=== PATIENT | female | born 1940 | race Caucasian/White ===

== ENCOUNTER → 2017-01-06 | Outpatient (CLI) | payer MEDICARE, BC ==
[~2017-01-06] MED LIST: LOSA25 PO; PANT20 PO; PRAV10TA PO
[2017-01-06 13:27] LABS: AUTOMATED NEUTROPHIL # 2.1 TH/MM3 (1.8-7.7); BASOPHIL # 0.1 TH/MM3 (0-0.2); BASOPHIL % 1.3 % (0.0-2.0); EOSINOPHIL # 0.3 TH/MM3 (0-0.4); EOSINOPHIL % 5.5 % (0.0-4.0); HEMATOCRIT 39.8 % (35.0-46.0); HEMO FLAGS DIFF FINAL; LYMPH % 38.9 % (9.0-44.0); LYMPHOCYTE # 1.8 TH/MM3 (1.0-4.8); MEAN CELL VOLUME 90.6 FL (80.0-100.0); MEAN CORPUSCULAR HEMOGLOBIN 30.8 PG (27.0-34.0); MONO % 8.5 % (0.0-8.0); NEUT % 45.8 % (16.0-70.0); PLATELET COUNT 294 TH/MM3 (150-450); RED BLOOD COUNT 4.39 MIL/MM3 (4.00-5.30); RED CELL DISTRIBUTION WIDTH 13.1 % (11.6-17.2); WHITE BLOOD COUNT 4.6 TH/MM3 (4.0-11.0)
[2017-01-06 13:50] LABS: ANION GAP 3 MEQ/L (5-15); BICARBONATE 33.1 MEQ/L (21.0-32.0); BLOOD UREA NITROGEN 15 MG/DL (7-18); CHLORIDE 105 MEQ/L (98-107); POTASSIUM 4.9 MEQ/L (3.5-5.1); SODIUM (NA) 141 MEQ/L (136-145)
[2017-01-06 14:02] LABS: ALKALINE PHOSPHATASE 109 U/L (45-117); ALT (GPT) 75 U/L (10-53); AST (GOT) 57 U/L (15-37); GLOMERULAR FILTRATION RATE 65 ML/MIN (>89); GLUCOSE,FASTING 87 MG/DL (74-99); HDL CHOLESTEROL 62.4 MG/DL (40.0-60.0); LDL CHOLESTEROL 77 MG/DL (0-99); TOTAL BILIRUBIN ADULT 0.5 MG/DL (0.2-1.0)
== END ==
LOC: PLAB 09:04
PROVIDERS: ATTEND Family Medicine
DX: I10 Essential (primary) hypertension (principal); E78.5 Hyperlipidemia, unspecified; K21.9 Gastro-esophageal reflux disease without esophagitis
CPT/HCPCS: 36415; 80053; 80061; 85025

== ENCOUNTER → 2017-06-19 | Outpatient (CLI) | payer MEDICARE, BC ==
[2017-06-19 13:11] LABS: AUTOMATED NEUTROPHIL # 1.7 TH/MM3 (1.8-7.7); BASOPHIL # 0.1 TH/MM3 (0-0.2); BASOPHIL % 1.3 % (0.0-2.0); EOSINOPHIL # 0.2 TH/MM3 (0-0.4); EOSINOPHIL % 4.1 % (0.0-4.0); HEMATOCRIT 40.1 % (35.0-46.0); HEMO FLAGS DIFF FINAL; LYMPH % 43.2 % (9.0-44.0); LYMPHOCYTE # 1.8 TH/MM3 (1.0-4.8); MEAN CELL VOLUME 93.9 FL (80.0-100.0); MEAN CORPUSCULAR HEMOGLOBIN 32.5 PG (27.0-34.0); MEAN CORPUSCULAR HGB CONC 34.6 % (32.0-36.0); MONO % 9.6 % (0.0-8.0); NEUT % 41.8 % (16.0-70.0); PLATELET COUNT 351 TH/MM3 (150-450); RED BLOOD COUNT 4.27 MIL/MM3 (4.00-5.30); RED CELL DISTRIBUTION WIDTH 12.5 % (11.6-17.2); WHITE BLOOD COUNT 4.2 TH/MM3 (4.0-11.0)
[2017-06-19 13:37] LABS: ANION GAP 6 MEQ/L (5-15); AST (GOT) 30 U/L (15-37); BICARBONATE 29.5 MEQ/L (21.0-32.0); BLOOD UREA NITROGEN 16 MG/DL (7-18); CHLORIDE 97 MEQ/L (98-107); GLOMERULAR FILTRATION RATE 60 ML/MIN (>89); GLUCOSE,FASTING 74 MG/DL (74-99); POTASSIUM 3.5 MEQ/L (3.5-5.1); SODIUM (NA) 132 MEQ/L (136-145)
[2017-06-19 13:50] LABS: ALKALINE PHOSPHATASE 116 U/L (45-117); ALT (GPT) 71 U/L (10-53); HDL CHOLESTEROL 74.8 MG/DL (40.0-60.0); LDL CHOLESTEROL 118 MG/DL (0-99); TOTAL BILIRUBIN ADULT 0.5 MG/DL (0.2-1.0)
== END ==
LOC: PLAB 09:03
PROVIDERS: ATTEND Family Medicine
DX: I10 Essential (primary) hypertension (principal); E78.5 Hyperlipidemia, unspecified; R74.0 Nonspecific elevation of levels of transaminase and lactic acid dehydrogenase [LDH]; K21.9 Gastro-esophageal reflux disease without esophagitis
CPT/HCPCS: 36415; 80053; 80061; 80074; 85025

== ENCOUNTER 2017-11-07 21:43 | Observation (INO) | payer MEDICARE, BC ==
[~2017-11-07] VITALS: Ht 157.5 cm; Wt 57.0 kg
[2017-11-07 21:44] VITALS: BP 210/91; PULSE 75; RESP 16; TEMP 98; O2SAT 99
[2017-11-07] MEDS ORDERED: LUTE20CA PO (22:13)
[2017-11-07] MEDS ORDERED: CALC1TAB87 PO (22:13)
[2017-11-07] MEDS ORDERED: BIOTCAP PO (22:13)
[2017-11-07] MEDS ORDERED: CLAR10CA3 PO (22:13)
[2017-11-07] MEDS ORDERED: ESCI10TA PO (22:13)
[2017-11-07] MEDS ORDERED: MULT-65 PO (22:13)
[2017-11-07] MEDS ORDERED: LOSA50TA PO (22:13)
[2017-11-07] MEDS ORDERED: CARA1TAB6 PO (22:13)
--- NOTE | 2017-11-07 22:16 | PD ---
HPI Chief Complaint: Hypertension Time Seen by Provider: 22:15 Travel History International Travel<30 days: No Contact w/Intl Traveler<30days: No Traveled to known affect area: No History of Present Illness HPI 76-year-old female came to the emergency room with history of substernal chest pain radiating to her back that started tonight. She has been retching as well and trying to vomit. Patient has history of GERD and says she has had these symptoms in the past. However she recently has been running high blood pressure as well. She has been keeping a log of her blood pressure and today it was running in 180s to 200s. Her daughter decided to bring her to the emergency room because of this. Patient has never had a cardiac workup or stress test in the past. Her primary care recently increased her dose of losartan from 25 mg once a day to 50 mg once a day. She is been taking it for past 4 days but her blood pressure continues to be high. In triage her systolic blood pressure was little over 200. When I went to see her it was 180. She seems anxious and uncomfortable. [facility] Past Medical History Narrative Medical List of her past medical, surgical, social and family history is reviewed from the nursing note. Depression: Yes High Cholesterol: Yes Diminished Hearing: No GERD: Yes Hypertension: Yes Tetanus Vaccination: Unknown Influenza Vaccination: Yes ?: Not Menopausal: Yes Past Surgical History Hysterectomy: Yes Social History Alcohol Use: No Tobacco Use: No Substance Use: No Allergies-Medications (Allergen,Severity, Reaction): Coded Allergies: niacin (Verified Allergy, Intermediate, hives, 11/07/17) aspirin (Verified Adverse Reaction, Intermediate, Heartburn, 11/07/17) Comments List of her allergies reviewed from the nursing note. Reported Meds & Prescriptions Reported Meds & Active Scripts Active Norvasc (Amlodipine Besylate) 5 Mg Tab 5 Mg PO DAILY Reported Claritin (Loratadine) 10 Mg Cap 10 Mg PO DAILY Losartan (Losartan Potassium) 50 Mg Tab 50 Mg PO DAILY Escitalopram (Escitalopram Oxalate) 10 Mg Tab 10 Mg PO DAILY Carafate (Sucralfate) 1 Gram Tab 1 Gm PO TID On empty stomach Lutein 20 Mg Cap 20 Mg PO DAILY Biotin 5 Mg Cap 5 Mg PO Multi-Vitamin Daily (Multiple Vitamin) 1 Tab Tab 1 Tab PO DAILY Calcium 600 with Vitamin D (Calcium Carbonate-Cholecalciferol) 600-400 mg-Unit Tab 1 Tab PO DAILY Narrative Medication List of her home medications reviewed from the nursing note. Review of Systems Except as stated in HPI: all other systems reviewed are Neg Cardiovascular: Positive: Chest Pain or Discomfort Gastrointestinal: Positive: Nausea Physical Exam Narrative GENERAL: Awake, alert, anxious, elderly, moderate distress SKIN: Focused skin assessment warm/dry. HEAD: Atraumatic. Normocephalic. EYES: Pupils equal and round. No scleral icterus. No injection or drainage. ENT: No nasal bleeding or discharge. Mucous membranes pink and moist. NECK: Trachea midline. No JVD. CARDIOVASCULAR: Regular rate and rhythm. No murmur appreciated. RESPIRATORY: No accessory muscle use. Clear to auscultation. Breath sounds equal bilaterally. GASTROINTESTINAL: Abdomen soft, non-tender, nondistended. Hepatic and splenic margins not palpable. MUSCULOSKELETAL: No obvious deformities. No clubbing. No cyanosis. No edema. NEUROLOGICAL: Awake and alert. No obvious cranial nerve deficits. Motor grossly within normal limits. Normal speech. PSYCHIATRIC: Appropriate mood and affect; insight and judgment normal. Data Data Last Documented VS Vital Signs Date Time Temp Pulse Resp B/P (MAP) Pulse Ox O2 Delivery O2 Flow Rate FiO2 11/08/17 00:55 64 18 157/69 (98) 97 Room Air 11/07/17 21:44 98.0 Orders Orders Electrocardiogram (11/07/17 22:35) Basic Metabolic Panel (Bmp) (11/07/17 22:35) Ckmb (Isoenzyme) Profile (11/07/17 22:35) Complete Blood Count With Diff (11/07/17 22:35) Magnesium (Mg) (11/07/17 22:35) Prothrombin Time / Inr (Pt) (11/07/17 22:35) Act Partial Throm Time (Ptt) (11/07/17 22:35) Troponin I (11/07/17 22:35) Chest, Single Ap (11/07/17 22:35) Ecg Monitoring (11/07/17 22:35) Bilateral Bp Monitoring (11/07/17 22:35) Iv Access Insert/Monitor (11/07/17 22:35) Oximetry (11/07/17 22:35) Oxygen Administration (11/07/17 22:35) Aspirin Chew (Aspirin Chew) (11/07/17 22:45) Sodium Chloride 0.9% Flush (Ns Flush) (11/07/17 22:45) Nitroglycerin Sl (Nitrostat Sl) (11/07/17 22:45) D-Dimer (11/07/17 22:35) Ct Pulmonary Angiogram (11/07/17 23:44) Admit Order (Ed Use Only) (11/08/17 01:32) Labs Laboratory Tests Test 11/07/17 22:50 White Blood Count 10.7 TH/MM3 Red Blood Count 4.58 MIL/MM3 Hemoglobin 13.9 GM/DL Hematocrit 41.8 % Mean Corpuscular Volume 91.2 FL Mean Corpuscular Hemoglobin 30.3 PG Mean Corpuscular Hemoglobin Concent 33.2 % Red Cell Distribution Width 12.0 % Platelet Count 512 TH/MM3 Mean Platelet Volume 7.9 FL Neutrophils (%) (Auto) 70.2 % Lymphocytes (%) (Auto) 19.6 % Monocytes (%) (Auto) 8.2 % Eosinophils (%) (Auto) 1.5 % Basophils (%) (Auto) 0.5 % Neutrophils # (Auto) 7.4 TH/MM3 Lymphocytes # (Auto) 2.1 TH/MM3 Monocytes # (Auto) 0.9 TH/MM3 Eosinophils # (Auto) 0.2 TH/MM3 Basophils # (Auto) 0.1 TH/MM3 CBC Comment DIFF FINAL Differential Comment Prothrombin Time 10.4 SEC Prothromb Time International Ratio 1.0 RATIO Activated Partial Thromboplast Time 27.4 SEC D-Dimer Quantitative (PE/DVT) 0.89 MG/L FEU Blood Urea Nitrogen 17 MG/DL Creatinine 0.74 MG/DL Random Glucose 105 MG/DL Calcium Level 9.7 MG/DL Magnesium Level 2.3 MG/DL Sodium Level 135 MEQ/L Potassium Level 3.7 MEQ/L Chloride Level 98 MEQ/L Carbon Dioxide Level 32.3 MEQ/L Anion Gap 5 MEQ/L Estimat Glomerular Filtration Rate 77 ML/MIN Total Creatine Kinase 84 U/L Troponin I LESS THAN 0.02 NG/ML MDM Medical Decision Making Medical Screen Exam Complete: Yes Emergency Medical Condition: Yes Medical Record Reviewed: Yes Differential Diagnosis ACS, non-STEMI, hypertensive crisis Narrative Course 10:40 PM awaiting for the blood test results. Patient has been given 2 baby aspirin's on a nitroglycerin sublingual. She will be signed over to the oncoming ER physician. Procedures EKG Prior to Arrival: No Scripts Amlodipine (Norvasc) 5 Mg Tab 5 MG PO DAILY for Blood Pressure Management, #30 TAB Prov: Marshall Wen 11/08/17 Teresa Fulton MD Nov 07, 2017 22:15
[2017-11-07 22:20] VITALS: BP 180/81; PULSE 66; RESP 18; O2SAT 97
[2017-11-07 22:21] VITALS: BP 180/90
[2017-11-07] MEDS ORDERED: NITROGLYCERIN 0.4 MG SL 25 TABS/BTL SL ONE (22:45)
[2017-11-07] MEDS ORDERED: SODIUM CHLORIDE 0.9% FLUSH 10 ML FLUSH IVF PRN (22:45)
[2017-11-07] MEDS ORDERED: ASPIRIN 81 MG CHEW TAB PO ONE (22:45)
--- NOTE | 2017-11-07 22:51 | RADRPT ---
EXAM DATE/TIME: 11/07/2017 22:37 [facility] COMPARISON: No previous studies available for comparison. INDICATIONS : High blood pressure, Coughing, Shortness of breath and chest pain. MEDICAL HISTORY : Hypercholesterolemia. Hypertension Gastroesophageal reflux disease. SURGICAL HISTORY : Hysterectomy. ENCOUNTER: Initial ACUITY: 1 week PAIN SCORE: 5/10 LOCATION: Bilateral chest FINDINGS: Portable AP view of the chest demonstrates a normal-sized cardiac silhouette. No effusion, consolidat ion, or pneumothorax is identified. There is symmetric mild biapical scar. The bones and soft tissues demonstrate no acute finding. There is dextroscoliosis of the thoracic spine. CONCLUSION: No acute cardiopulmonary abnormality is identified. Yemi Forman MD on November 07, 2017 at 22:48 Board Certified Radiologist. This report was verified electronically.
[2017-11-07 22:58] LABS: AUTOMATED NEUTROPHIL # 7.4 TH/MM3 (1.8-7.7); BASOPHIL # 0.1 TH/MM3 (0-0.2); BASOPHIL % 0.5 % (0.0-2.0); EOSINOPHIL # 0.2 TH/MM3 (0-0.4); EOSINOPHIL % 1.5 % (0.0-4.0); HEMATOCRIT 41.8 % (35.0-46.0); HEMOGLOBIN 13.9 GM/DL (11.6-15.3); LYMPH % 19.6 % (9.0-44.0); LYMPHOCYTE # 2.1 TH/MM3 (1.0-4.8); MEAN CELL VOLUME 91.2 FL (80.0-100.0); MEAN CORPUSCULAR HEMOGLOBIN 30.3 PG (27.0-34.0); MEAN CORPUSCULAR HGB CONC 33.2 % (32.0-36.0); MEAN PLATELET VOLUME 7.9 FL (7.0-11.0); MONO % 8.2 % (0.0-8.0); MONOCYTE # 0.9 TH/MM3 (0-0.9); NEUT % 70.2 % (16.0-70.0); PLATELET COUNT 512 TH/MM3 (150-450); RED BLOOD COUNT 4.58 MIL/MM3 (4.00-5.30); WHITE BLOOD COUNT 10.7 TH/MM3 (4.0-11.0)
[2017-11-07 22:59] VITALS: RESP 18; O2SAT 97
[2017-11-07 23:07] LABS: CHLORIDE 98 MEQ/L (98-107); SODIUM (NA) 135 MEQ/L (136-145)
[2017-11-07 23:09] VITALS: BP 155/74; PULSE 66; RESP 18; O2SAT 97
[2017-11-07 23:10] LABS: BICARBONATE 32.3 MEQ/L (21.0-32.0); CALCIUM 9.7 MG/DL (8.5-10.1); GLUCOSE,RANDOM 105 MG/DL (74-106)
[2017-11-07 23:11] LABS: BLOOD UREA NITROGEN 17 MG/DL (7-18); MAGNESIUM 2.3 MG/DL (1.5-2.5)
[2017-11-07 23:14] LABS: CREATININE 0.74 MG/DL (0.50-1.00); GLOMERULAR FILTRATION RATE 77 ML/MIN (>89); PROTHROMBIN TIME - PATIENT 10.4 SEC (9.8-11.6)
[2017-11-07 23:19] LABS: TROPONIN I LESS THAN 0.02 NG/ML (0.02-0.05)
[2017-11-07 23:20] LABS: D-DIMER 0.89 MG/L FEU (0.00-0.50)
[2017-11-07 23:40] VITALS: BP 142/65; PULSE 61; RESP 18; O2SAT 97
--- NOTE | 2017-11-07 23:44 | PD ---
Physical Exam Time Seen by Provider: 23:[address] Fulton left this patient with me to check the laboratory and likely admitted to the chest pain center. Data Data Last Documented VS Vital Signs Date Time Temp Pulse Resp B/P (MAP) Pulse Ox O2 Delivery O2 Flow Rate FiO2 11/08/17 00:55 64 18 157/69 (98) 97 Room Air 11/07/17 21:44 98.0 Orders Orders Electrocardiogram (11/07/17 22:35) Basic Metabolic Panel (Bmp) (11/07/17 22:35) Ckmb (Isoenzyme) Profile (11/07/17 22:35) Complete Blood Count With Diff (11/07/17 22:35) Magnesium (Mg) (11/07/17 22:35) Prothrombin Time / Inr (Pt) (11/07/17 22:35) Act Partial Throm Time (Ptt) (11/07/17 22:35) Troponin I (11/07/17 22:35) Chest, Single Ap (11/07/17 22:35) Ecg Monitoring (11/07/17 22:35) Bilateral Bp Monitoring (11/07/17 22:35) Iv Access Insert/Monitor (11/07/17 22:35) Oximetry (11/07/17 22:35) Oxygen Administration (11/07/17 22:35) Aspirin Chew (Aspirin Chew) (11/07/17 22:45) Sodium Chloride 0.9% Flush (Ns Flush) (11/07/17 22:45) Nitroglycerin Sl (Nitrostat Sl) (11/07/17 22:45) D-Dimer (11/07/17 22:35) Ct Pulmonary Angiogram (11/07/17 23:44) Admit Order (Ed Use Only) (11/08/17 01:32) Labs Laboratory Tests Test 11/07/17 22:50 White Blood Count 10.7 TH/MM3 Red Blood Count 4.58 MIL/MM3 Hemoglobin 13.9 GM/DL Hematocrit 41.8 % Mean Corpuscular Volume 91.2 FL Mean Corpuscular Hemoglobin 30.3 PG Mean Corpuscular Hemoglobin Concent 33.2 % Red Cell Distribution Width 12.0 % Platelet Count 512 TH/MM3 Mean Platelet Volume 7.9 FL Neutrophils (%) (Auto) 70.2 % Lymphocytes (%) (Auto) 19.6 % Monocytes (%) (Auto) 8.2 % Eosinophils (%) (Auto) 1.5 % Basophils (%) (Auto) 0.5 % Neutrophils # (Auto) 7.4 TH/MM3 Lymphocytes # (Auto) 2.1 TH/MM3 Monocytes # (Auto) 0.9 TH/MM3 Eosinophils # (Auto) 0.2 TH/MM3 Basophils # (Auto) 0.1 TH/MM3 CBC Comment DIFF FINAL Differential Comment Prothrombin Time 10.4 SEC Prothromb Time International Ratio 1.0 RATIO Activated Partial Thromboplast Time 27.4 SEC D-Dimer Quantitative (PE/DVT) 0.89 MG/L FEU Blood Urea Nitrogen 17 MG/DL Creatinine 0.74 MG/DL Random Glucose 105 MG/DL Calcium Level 9.7 MG/DL Magnesium Level 2.3 MG/DL Sodium Level 135 MEQ/L Potassium Level 3.7 MEQ/L Chloride Level 98 MEQ/L Carbon Dioxide Level 32.3 MEQ/L Anion Gap 5 MEQ/L Estimat Glomerular Filtration Rate 77 ML/MIN Total Creatine Kinase 84 U/L Troponin I LESS THAN 0.02 NG/ML [facility] Medical Record Reviewed: Yes Supervised Visit with ANIKET: No Interpretation(s) The CBC is normal except for a platelet count of 512,000. The basic metabolic profile shows a sodium of 135, bicarbonate 32.3, GFR of 77 but is otherwise unremarkable. The magnesium, total CK and troponin I are all normal. The coagulation profile shows a d-dimer of 0.89 with normal pro time, INR and a PTT. Differential Diagnosis Acute coronary syndrome, chest wall pain, pleuritic pain, esophageal pain, gastrointestinal pain, chest pain etiology undetermined, pulmonary embolus Narrative Course The patient has chest pain etiology undetermined. She will go to the chest pain center this morning. Since she walks 2 miles daily, it is likely that she may be able to do a treadmill. Diagnosis Primary Impression: Chest pain of unknown etiology Admitting Information Admitting Physician Requests: Evan Christopher MD Nov 07, 2017 23:44
[2017-11-08] VITALS (7 sets, daily range): BP systolic 138–169; BP diastolic 63–76; PULSE 64–78; RESP 14–18; TEMP 97.1–97.8; O2SAT 95–97
--- NOTE | 2017-11-08 00:49 | RADRPT ---
EXAM DATE/TIME: 11/08/2017 00:26 [facility] COMPARISON: No previous studies available for comparison. INDICATIONS : Patient complains of substernal pain. IV CONTRAST: 75 cc Omnipaque 350 (iohexol) IV RADIATION DOSE: 5.80 CTDIvol (mGy) MEDICAL HISTORY : Hypertension. gerd SURGICAL HISTORY : Hysterectomy. ENCOUNTER: Initial ACUITY: 1 day PAIN SCALE: 3/10 LOCATION: chest TECHNIQUE: Volumetric scanning of the chest was performed using a pulmonary embolism protocol MIP images were re constructed. Using automated exposure control and adjustment of the mA and/or kV according to patien t size, radiation dose was kept as low as reasonably achievable to obtain optimal diagnostic quality images. DICOM format image data is available electronically for review and comparison. Follow-up recommendations for detected pulmonary nodules are based at a minimum on nodule size and pa tient risk factors according to Fleischner Society Guidelines. FINDINGS: PULMONARY ARTERIES: No filling defects are seen in the pulmonary arteries through the segmental level. LUNGS: There is no consolidation or pneumothorax . No concerning pulmonary nodule is visualized. PLEURAE: There is no pleural thickening or pleural effusion. MEDIASTINUM: There is good visualization of the great vessels of the middle mediastinum. No evidence of mediastin al or hilar adenopathy/mass. MUSCULOSKELETAL: Within normal limits for patient age. MISCELLANEOUS: The visualized upper abdominal organs demonstrate no acute abnormality. CONCLUSION: 1. Negative for pulmonary embolus. No acute findings. Jaden Elkins MD on November 08, 2017 at 0:43 Board Certified Radiologist. This report was verified electronically.
[2017-11-08] MEDS ORDERED: IOHEXOL 350 MG/ML 10 ML VIAL (for RAD DIAG) IVCONTRAST ONE (01:35)
[2017-11-08 08:08] LABS: TROPONIN I LESS THAN 0.02 NG/ML (0.02-0.05)
--- NOTE | 2017-11-08 09:12 | HHI.HP ---
[facility] Service [facility] Primary Care Physician Porsche Hernandez MD Admission Diagnosis chest pain etiology undetermined Diagnoses: (1) Chest pain of unknown etiology Diagnosis: Principal (2) Accelerated hypertension Diagnosis: Principal Chief Complaint: Elevated blood pressure Travel History International Travel<30 Days: No Contact w/Intl Traveler <30 Da: No Traveled to Known Affected Are: No History of Present Illness 76-year-old female with known history of hypertension, hyperlipidemia , gastroesophageal reflux, Mnire's disorder who presented to hospital because of elevated blood pressure. Patient states that she went to her primary medical doctor's office approximately 4-5 days ago because her blood pressures have been running high. They adjusted her medications by increasing to losartan 50 mg daily. She has taken 4 doses at this time. She checked her blood pressure last night and was 202/109. She called her [id number] who is a nurse and she came over and rechecked her blood pressure in was still in the 200s so they came to emergency department for evaluation. Upon presentation emergency department patient blood pressure was 210/91. Patient was given nitroglycerin with improvement of her blood pressure. However the patient did develop some lightheadedness after the nitroglycerin. Upon further questioning the patient indicates that she does have pretty severe gastroesophageal reflux and late afternoon yesterday she developed a "GERD attack". She started the pain in her epigastric region radiating to her back with associated belching. The pain was constant, 8/10 on a pain scale. Patient indicates that it went away when she arrived to the medical floor. She has not had any residual pain since then. The pain did not go away after nitroglycerin was given. She denied any nausea, vomiting, diaphoresis, shortness of breath, dyspnea. Patient had workup done emergency department and it was recommended by the ER physician that the patient the observed in the chest pain center for cardiac evaluation. Review of Systems Constitutional: COMPLAINS OF: Dizziness Gastrointestinal: COMPLAINS OF: Abdominal pain Except as stated in HPI: all other systems reviewed are Neg Past Family Social History Past Medical History Hypertension Hyperlipidemia Gastroesophageal reflux Mnire's disease Past Surgical History Patient denies any previous surgeries Reported Medications Reported Meds & Active Scripts Active Reported Claritin (Loratadine) 10 Mg Cap 10 Mg PO DAILY Losartan (Losartan Potassium) 50 Mg Tab 50 Mg PO DAILY Escitalopram (Escitalopram Oxalate) 10 Mg Tab 10 Mg PO DAILY Carafate (Sucralfate) 1 Gram Tab 1 Gm PO TID On empty stomach Lutein 20 Mg Cap 20 Mg PO DAILY Biotin 5 Mg Cap 5 Mg PO Multi-Vitamin Daily (Multiple Vitamin) 1 Tab Tab 1 Tab PO DAILY Calcium 600 with Vitamin D (Calcium Carbonate-Cholecalciferol) 600-400 mg-Unit Tab 1 Tab PO DAILY Allergies: Coded Allergies: niacin (Verified Allergy, Intermediate, hives, 11/07/17) aspirin (Verified Adverse Reaction, Intermediate, Heartburn, 11/07/17) Family History Reviewed and significant for heart disease, father at age 69 with heart disease, 2 brothers in her 60s from heart attacks. Mother from cancer Physical Exam Vital Signs Vital Signs Date Time Temp Pulse Resp B/P (MAP) Pulse Ox O2 Delivery O2 Flow Rate FiO2 11/08/17 05:51 78 11/08/17 04:00 97.4 72 18 152/74 (100) 96 11/08/17 03:03 66 18 97 11/08/17 02:00 97.4 69 18 168/75 (106) 95 11/08/17 01:46 66 18 169/76 (107) 97 Room Air 11/08/17 00:55 64 18 157/69 (98) 97 Room Air 11/07/17 23:40 61 18 142/65 (90) 97 Room Air 11/07/17 23:09 66 18 155/74 (101) 97 Room Air 11/07/17 22:59 97 Room Air 11/07/17 22:59 18 97 Room Air 11/07/17 22:21 180/90 (120) 11/07/17 22:20 66 18 180/81 (114) 97 Room Air 11/07/17 22:07 72 18 98 Room Air 11/07/17 21:44 98.0 75 16 210/91 (130) 99 Physical Exam GENERAL: Well-developed, well-nourished, in no acute distress. alert and orientated HEENT: Head is normocephalic without any lesions or masses noted. Facial features are symmetric. Eyes: Pupils equal round reactive to light. Extraocular muscles are intact. Conjunctivae were clear. Oropharyngeal: Pharynx without any erythema edema. Tongue is midline without deviation. Buccal mucosa is moist without any masses or lesions NECK: Supple without any masses. Trachea midline no deviation. No JVD, no bruits are appreciated CARDIAC: Regular rhythm, regular rate. S1/S2 are heard. No murmurs gallops or rubs. LUNGS: Clear to auscultation bilaterally. No wheeze, rhonchi or rales. No use of accessory muscles on inspiration or expiration. ABDOMEN: Soft, nontender. Nondistended. Bowel sounds heard in all 4 quadrants. No organomegaly or masses. Negative rebound, negative guarding EXTREMITIES: No edema, pulses are equal bilaterally. No cyanosis or clubbing NEUROLOGY: Mood and affect appear appropriate. Cranial nerves II through XII grossly intact. Muscle strength 5/5 in upper and lower extremities bilaterally. Deep tendon reflexes are 2+ in upper and lower extremities bilaterally. Laboratory Laboratory Tests Test 11/07/17 22:50 11/08/17 07:25 White Blood Count 10.7 Red Blood Count 4.58 Hemoglobin 13.9 Hematocrit 41.8 Mean Corpuscular Volume 91.2 Mean Corpuscular Hemoglobin 30.3 Mean Corpuscular Hemoglobin Concent 33.2 Red Cell Distribution Width 12.0 Platelet Count 512 Mean Platelet Volume 7.9 Neutrophils (%) (Auto) 70.2 Lymphocytes (%) (Auto) 19.6 Monocytes (%) (Auto) 8.2 Eosinophils (%) (Auto) 1.5 Basophils (%) (Auto) 0.5 Neutrophils # (Auto) 7.4 Lymphocytes # (Auto) 2.1 Monocytes # (Auto) 0.9 Eosinophils # (Auto) 0.2 Basophils # (Auto) 0.1 CBC Comment DIFF FINAL Differential Comment Prothrombin Time 10.4 Prothromb Time International Ratio 1.0 Activated Partial Thromboplast Time 27.4 D-Dimer Quantitative (PE/DVT) 0.89 Blood Urea Nitrogen 17 Creatinine 0.74 Random Glucose 105 Calcium Level 9.7 Magnesium Level 2.3 Sodium Level 135 Potassium Level 3.7 Chloride Level 98 Carbon Dioxide Level 32.3 Anion Gap 5 Estimat Glomerular Filtration Rate 77 Total Creatine Kinase 84 52 Troponin I LESS THAN 0.02 LESS THAN 0.02 Result Diagram: 2224911/07/[address] Angiography 11/07/17 2344 Signed Impressions: Service Date/Time: Wednesday, November 08, 2017 00:26 - CONCLUSION: 1. Negative for pulmonary embolus. No acute findings. Jaedn Elkins MD Chest X-Ray 11/07/175 Signed Impressions: Service Date/Time: Tuesday, November 07, 2017 22:37 - CONCLUSION: No acute cardiopulmonary abnormality is identified. MD Jenna Zelaya VTE Risk Assessment Caprinkm VTE Risk Assessment: Mod/High Risk (score >= 2) Caprini Risk Assessment Model Point Value = 1 Point Value = 2 Point Value = 3 Point Value = 5 Age 41-60 Minor surgery BMI > 25 kg/m2 Swollen legs Varicose veins or History of unexplained or recurrent spontaneous Oral contraceptives or hormone replacement Sepsis (< 1 month) Serious lung disease, including pneumonia (< 1 month) Abnormal pulmonary function Acute myocardial infarction Congestive heart failure (< 1 month) History of inflammatory bowel disease Medical patient at bed rest Age 61-74 Arthroscopic surgery Major open surgery (> 45 min) Laparoscopic surgery (> 45 min) Malignancy Confined to bed (> 72 hours) Immobilizing plaster cast Central venous access Age >= 75 History of VTE Family history of VTE Factor V Leiden Prothrombin [id number] Lupus anticoagulant Anticardiolipin antibodies Elevated serum homocysteine Heparin-induced thrombocytopenia Other congenital or acquired thrombophilia Stroke (< 1 month) Elective arthroplasty Hip, pelvis, or leg fracture Acute spinal cord injury (< 1 month) Prophylaxis Regimen Total Risk Factor Score Risk Level Prophylaxis Regimen 0-1 Low Early ambulation 2 Moderate Order ONE of the following: *Sequential Compression Device (SCD) *Heparin 5000 units SQ BID 3-4 Higher Order ONE of the following medications: *Heparin 5000 units SQ TID *Enoxaparin/Lovenox 40 mg SQ daily (WT < 150 kg, CrCl > 30 mL/min) *Enoxaparin/Lovenox 30 mg SQ daily (WT < 150 kg, CrCl > 10-29 mL/min) *Enoxaparin/Lovenox 30 mg SQ BID (WT < 150 kg, CrCl > 30 mL/min) AND/OR *Sequential Compression Device (SCD) 5 or more Highest Order ONE of the following medications: *Heparin 5000 units SQ TID (Preferred with Epidurals) *Enoxaparin/Lovenox 40 mg SQ daily (WT < 150 kg, CrCl > 30 mL/min) *Enoxaparin/Lovenox 30 mg SQ daily (WT < 150 kg, CrCl > 10-29 mL/min) *Enoxaparin/Lovenox 30 mg SQ BID (WT < 150 kg, CrCl > 30 mL/min) AND *Sequential Compression Device (SCD) Assessment and Plan Assessment and Plan Epigastric discomfort radiating to her back Patient does have strong history of gastroesophageal reflux. Patient does have increased risk factors for underlying cardiac disease with hypertension, hyperlipidemia, family history of heart disease Chest x-ray did not indicate indicate any acute abnormality, mildly elevated d-dimer, pulmonary angiogram was unremarkable for pulmonary emboli Lipase level was normal Cardiac enzymes were performed which did not indicate any acute coronary event Serial cardiac enzymes reviewed by myself which does show right bundle branch block without any ST elevations Myocardial perfusion was performed and did not indicate any underlying ischemia, low risk Patient was given aspirin and nitroglycerin emergency department Accelerated hypertension Patient is had outpatient uncontrolled hypertension is being managed by her primary medical doctor Continue losartan 50 mg daily Vasotec/clonidine as needed Add Norvasc 5 mg daily Gastroesophageal reflux Start proton pump inhibitor DVT prevention sequential compression devices Discharge disposition Discharge home in stable condition Activity: Ad lucio. Diet: Healthy heart diet Medications per medication reconciliation Follow-up primary medical doctor in one week Marshall Wen Nov 08, 2017 09:12
[2017-11-08] MEDS ORDERED: LOSARTAN 50 MG TAB PO SCH (11:00)
[2017-11-08] MEDS ORDERED: PANTOPRAZOLE SOD 40 MG DELAYED RELEASE TAB PO SCH (11:00)
[2017-11-08] MEDS ORDERED: amLODIPine BESYLATE 5 MG TAB PO SCH (11:00)
[2017-11-08] MEDS ORDERED: ESCITALOPRAM OXALATE 10 MG TAB PO SCH (11:00)
[2017-11-08] MEDS ORDERED: REGADENOSON INJ 0.4 MG/5 ML SYR IV ONE (12:22)
--- NOTE | 2017-11-08 13:15 | TR ---
Date Performed: 11/08/2017 Time Performed: 12:33:17 DOCTOR: Gigi Castro DRUG LIST: CLINICAL HISTORY: CHEST PAIN REASON FOR TEST: Chest pain REASON FOR ENDING: OBSERVATION: CONCLUSION: Lexiscan stress test was performed under standard four minute protocol. Radionuclid e was injected one minute prior to ending the test. No electrocardiographic abormalities were present to suggest ischemia. Nuclear imaging and interpretation are pending. COMMENTS:
--- NOTE | 2017-11-08 13:41 | RADRPT ---
EXAM DATE/TIME: 11/08/2017 12:08 [place] COMPARISON: No previous studies available for comparison. INDICATIONS : Substernal chest pain. Angina. Right bundle branch block. DOSE: 25.4 mCi Tc99m Myoview at stress. 8.5 mCi Tc99m Myoview at rest. 0.4 mg Lexiscan STRESS SYMPTOMS: Dyspnea. EJECTION FRACTION: 70% MEDICAL HISTORY : Hypertension. Gastroesophageal reflux disease. SURGICAL HISTORY : Hysterectomy. ENCOUNTER: Initial ACUITY: 1 day PAIN SCALE: 5/10 LOCATION: Substernal chest TECHNIQUE: The patient underwent pharmacologic stress with infusion of prescribed dose. Continuous ECG tracing was monitored during stress. Gated SPECT imaging was performed after stress and conventional SPECT i maging was performed at rest. The examination was performed on a SPECT/CT scanner, both attenuation and non-corrected datasets were reviewed. FINDINGS: DISTRIBUTION: The maximum perfused segment at stress is in the anterolateral wall. PERFUSION STUDY: The pattern of perfusion at stress is within normal limits, with regional variation of perfusion with in 25%. No evidence of redistribution. The summed stress score is zero. GATED STUDY: There is intact wall motion and thickening without hypokinetic or dyskinetic segments. CONCLUSION: 1. No evidence of stress-induced ischemia. 2. Normal wall motion with 70% ejection fraction. RISK CATEGORY: Low (<1% Annual Mortality Rate) Arsenio Ramírez MD on November 08, 2017 at 13:36 Board Certified Radiologist. This report was verified electronically.
[2017-11-08] MEDS ORDERED: AMLO5 PO (13:56)
--- NOTE | 2017-11-08 13:57 | HHI.DCPOC ---
Discharge Care Plan Diagnosis: (1) Chest pain of unknown etiology (2) Accelerated hypertension Goals to Promote Your Health * To prevent worsening of your condition and complications * To maintain your health at the optimal level Directions to Meet Your Goals Take your medications as prescribed Follow your dietary instruction Follow activity as directed Keep your appointments as scheduled Take your immunizations and boosters as scheduled If your symptoms worsen call your PCP, if no PCP go to Urgent Care Center or Emergency Room Smoking is Dangerous to Your Health. Avoid second hand smoke Call the 24-hour hour crisis hotline for domestic abuse at [facility] Nov 08, 2017 13:57
--- NOTE | 2017-11-08 14:54 | EKG ---
Date Performed: 11/07/2017 Time Performed: 22:58:22 PTAGE: 76 years EKG: Sinus rhythm LEFT ATRIAL ENLARGEMENT INDETERMINATE AXIS INCOMPLETE RIGHT BUNDLE BRANCH BLOCK Consider anterosepta l myocardial infarction, age indeterminate ABNORMAL ECG PREVIOUS TRACING : 02/15/2012 08.39 DOCTOR: Porter Gomez Interpretating Date/Time 11/08/2017 14:53:39
--- NOTE | 2017-11-08 14:55 | EKG ---
Date Performed: 11/08/2017 Time Performed: 08:10:04 PTAGE: 76 years EKG: Sinus rhythm INDETERMINATE AXIS INCOMPLETE RIGHT BUNDLE BRANCH BLOCK BORDERLINE ECG Consider anteroseptal myocard ial infarction, age indeterminate PREVIOUS TRACING : 11/07/2017 22.58 DOCTOR: Porter Gomez Interpretating Date/Time 11/08/2017 14:53:58
== END 2017-11-08 15:22 | disposition home or self-care (01) ==
LOC: PHED 21:43 → PHEDA 11-08 01:34 → PH3A 11-08 02:37
PROVIDERS: ADMIT Hospitalist; ATTEND Hospitalist
DX: R10.13 Epigastric pain (principal); R07.9 Chest pain, unspecified; M54.9 Dorsalgia, unspecified; R05 Cough; R06.02 Shortness of breath; R42 Dizziness and giddiness; R94.31 Abnormal electrocardiogram [ECG] [EKG]; I20.9 Angina pectoris, unspecified; I10 Essential (primary) hypertension; E78.5 Hyperlipidemia, unspecified; K21.9 Gastro-esophageal reflux disease without esophagitis; I45.10 Unspecified right bundle-branch block; E78.00 Pure hypercholesterolemia, unspecified; F32.9 Major depressive disorder, single episode, unspecified; Z79.899 Other long term (current) drug therapy; Z82.49 Family history of ischemic heart disease and other diseases of the circulatory system
CPT/HCPCS: 71045; 71275; 78452; 80048; 82550; 83690; 83735; 84484; 85025; 85379; 85610; 85730; 93005; 93017; 99285; A9502; G0378; J2785; Q9967

== ENCOUNTER → 2018-01-11 | Outpatient (CLI) | payer MEDICARE, BC ==
[~2018-01-11] MED LIST changes: +AMLO5 PO; +BIOTCAP PO; +CALC1TAB87 PO; +CARA1TAB6 PO; +CLAR10CA3 PO; +ESCI10TA PO; -LOSA25 PO; +LOSA50TA PO; +LUTE20CA PO; +MULT-65 PO; -PANT20 PO; -PRAV10TA PO
[2018-01-11 10:45] LABS: ALBUMIN 3.4 GM/DL (3.4-5.0); AST (GOT) 59 U/L (15-37); BICARBONATE 29.9 MEQ/L (21.0-32.0); BLOOD UREA NITROGEN 21 MG/DL (7-18); CALCIUM 8.5 MG/DL (8.5-10.1); CHLORIDE 103 MEQ/L (98-107); CHOLESTEROL 199 MG/DL (120-200); GLOMERULAR FILTRATION RATE 70 ML/MIN (>89); GLUCOSE,FASTING 78 MG/DL (74-99); SODIUM (NA) 139 MEQ/L (136-145)
[2018-01-11 10:50] LABS: ALKALINE PHOSPHATASE 128 U/L (45-117); ALT (GPT) 75 U/L (10-53); CHOLESTEROL/ HDL RATIO 2.82 RATIO; HDL CHOLESTEROL 70.5 MG/DL (40.0-60.0); LDL CHOLESTEROL 120 MG/DL (0-99); TOTAL BILIRUBIN ADULT 0.3 MG/DL (0.2-1.0); TOTAL PROTEIN 7.5 GM/DL (6.4-8.2); TRIGLYCERIDES 44 MG/DL (42-150)
== END ==
LOC: PLAB 08:21
PROVIDERS: ATTEND Family Medicine
DX: I10 Essential (primary) hypertension (principal); R79.89 Other specified abnormal findings of blood chemistry; E78.5 Hyperlipidemia, unspecified
CPT/HCPCS: 36415; 80053; 80061

== ENCOUNTER 2018-03-17 16:36 | Inpatient (IN) ==
[2018-03-21] MEDS ORDERED: Acetaminophen 325 MG Tablet PO PRN (00:01)
[2018-03-21] MEDS ORDERED: Melatonin 5 MG Tablet PO PRN (00:01)
[2018-03-21] MEDS ORDERED: Vancomycin Consult Pharmacy 1 EACH OTHER SCH (00:01)
[2018-03-21] MEDS ORDERED: Chlorhexidine Gluconate 2% 1 Pack (2 Cloths) TOPICAL PRN (00:01)
[2018-03-21] MEDS ORDERED: Chlorhexidine Gluconate 2% 1 Pack (2 Cloths) TOPICAL SCH (04:00)
[2018-03-21] MEDS ORDERED: Piperacil/Tazo 4.5 GM Premix 4.5 GM/100 ML BAG IV.SIG SCH (06:00)
[2018-03-21] MEDS ORDERED: Heparin - SQ 10,000 UNITS/ML Vial SQ SCH (09:00)
[2018-03-21] MEDS ORDERED: Lactobacillus Acidophilus/L. Spores Tablet PO SCH (09:00)
[2018-03-21] MEDS ORDERED: Loratadine 10 MG Tablet PO SCH (09:00)
--- NOTE | 2018-03-21 10:27 | P.DS ---
Date of admission: 03/17/18 19:42 Primary care physician: Porsche Hernandez MD Brief History from admission: 77-year-old female with a past medical history significant for hypertension, hyperlipidemia and GERD presents to the emergency department for evaluation of tachycardia and hypertension. The patient was seeing her funeral arranger earlier today when her vital signs were taken and her pulse was found to be in the 130s and her blood pressure was 200s/100s. She was escorted by her funeral arranger to the emergency department when jail there she became too weak to walk and required a wheelchair. She is 2 weeks status post cholecystectomy with Dr. Garcia at [facility]. The patient is seen bedside. She is in respiratory distress. She is confused and believes she is in [place]. She reports difficulty breathing and shortness of breath. She denies any chest pain or abdominal pain. No fevers/chills. No nausea/vomiting/diarrhea. DS: Diagnosis - Discharge Diagnosis (1) Pneumonia Status: Acute DS: Medications - Discharge Medications Prescriptions: levofloxacin 750 mg PO DAILY #10 tab DS: Summary Hospital Course: Patient was admitted, started on multiple antibiotics and oxygen supplementation. Respiratory status significantly improved as well as her oxygenation to the point where she was not requiring any supplementation. was tolerating p.o. intake well without any recurring fevers shortness of breath. Patient has met maximal benefit from hospitalization is clinically stable for discharge. - Time Spent with Patient Total time spent providing and/or coordinating discharge services: Less than 30 minutes Exam Vital signs: Vital Signs 03/20/18 20:00 03/21/18 00:03 03/21/18 02:53 Temperature 97.7 F Pulse Rate 94 H 89 91 H Respiratory Rate 18 Blood Pressure 159/79 H Pulse Oximetry 97 03/21/18 03:52 03/21/18 08:00 Temperature 97.7 F Pulse Rate 98 H 95 H Respiratory Rate 18 Blood Pressure 137/67 Pulse Oximetry 94 L Intake & Output 03/20/18 03/21/18 03/21/18 18:59 06:59 18:59 Output Total 1000 / 1000 Balance -1000 / -1000 Output: Urine 1000 / 1000 Narrative: Mild crackles in the left lung field, otherwise unlabored breathing, coarse breath sounds on the right, no cyanosis Results Procedures completed during hospitalization: none Labs on day of discharge: Labs from last 24 hours 03/20/18 03/20/18 03/19/18 18:32 10:53 04:16 WBC 6.9 9.4 RBC 3.47 L 3.32 L Hgb 11.1 L 10.8 L Hct 32.2 L 32.4 L MCV 92.9 D 97.6 D MCH 32.0 32.5 MCHC 34.4 33.3 RDW 12.8 13.2 Plt Count 335 306 MPV 7.7 7.3 Neut % (Auto) 55.9 67.6 Lymph % (Auto) 13.4 6.7 L Otero % (Auto) 6.6 3.4 Eos % (Auto) 23.5 H 21.9 H Baso % (Auto) 0.6 0.4 Neut # (Auto) 3.9 6.4 Lymph # (Auto) 0.9 L 0.6 L Otero # (Auto) 0.5 0.3 Eos # (Auto) 1.6 H 2.1 H Baso # (Auto) 0.0 0.0 CBC Comment DIFF FINAL DIFF FINAL Total Counted Neutrophils % (Manual) Band Neutrophils % Lymphocytes % Eosinophils % Neutrophils # (Manual) Differential Comment Platelet Estimate Plt Morphology Comment RBC Morph Comment Hematology Comments PT INR APTT Puncture Site Patient Temperature HCO3 Base Excess O2 Saturation ABG pH ABG pCO2 ABG pO2 ABG O2 Content ABG Carboxyhemoglobin ABG Methemoglobin Hemoglobin O2 Delivery Device Liter Flow Vent Setting Inspired O2 Sodium 137 Potassium 3.1 L Chloride 103 Carbon Dioxide 27.3 Anion Gap 7 BUN 10 Creatinine 0.86 Estimated GFR 64 L Random Glucose 102 Lactic Acid Calcium 8.2 L Magnesium Total Bilirubin AST ALT Alkaline Phosphatase Total Creatine Kinase Troponin I B-Natriuretic Peptide Total Protein Albumin Lipase Free T4 TSH 3rd Generation Urine Color Urine Turbidity Urine pH Ur Specific [place] Urine Protein Urine Glucose (UA) Urine Ketones Urine Occult Blood Urine Nitrite Urine Bilirubin Urine Urobilinogen Ur Leukocyte Esterase Urine WBC Ur Squamous Epith Cells Micro UA Comment Nasal Screen MRSA (PCR) Hepatitis A IgM Ab Hep Bs Antigen Hep B Core IgM Ab Hep C IgG Ab 03/19/18 03/19/18 03/18/18 04:16 04:16 19:34 WBC RBC Hgb Hct MCV MCH MCHC RDW Plt Count MPV Neut % (Auto) Lymph % (Auto) Otero % (Auto) Eos % (Auto) Baso % (Auto) Neut # (Auto) Lymph # (Auto) Otero # (Auto) Eos # (Auto) Baso # (Auto) CBC Comment Total Counted Neutrophils % (Manual) Band Neutrophils % Lymphocytes % Eosinophils % Neutrophils # (Manual) Differential Comment Platelet Estimate Plt Morphology Comment RBC Morph Comment Hematology Comments PT INR APTT Puncture Site Patient Temperature HCO3 Base Excess O2 Saturation ABG pH ABG pCO2 ABG pO2 ABG O2 Content ABG Carboxyhemoglobin ABG Methemoglobin Hemoglobin O2 Delivery Device Liter Flow Vent Setting Inspired O2 Sodium 131 L Potassium 3.4 L D Chloride 101 Carbon Dioxide 20.0 L Anion Gap 10 BUN 12 Creatinine 0.77 Estimated GFR 73 L Random Glucose 91 Lactic Acid 0.9 2.1 H Calcium 7.8 L Magnesium Total Bilirubin AST ALT Alkaline Phosphatase Total Creatine Kinase Troponin I B-Natriuretic Peptide Total Protein Albumin Lipase Free T4 TSH 3rd Generation Urine Color Urine Turbidity Urine pH Ur Specific [place] Urine Protein Urine Glucose (UA) Urine Ketones Urine Occult Blood Urine Nitrite Urine Bilirubin Urine Urobilinogen Ur Leukocyte Esterase Urine WBC Ur Squamous Epith Cells Micro UA Comment Nasal Screen MRSA (PCR) Hepatitis A IgM Ab Hep Bs Antigen Hep B Core IgM Ab Hep C IgG Ab 03/18/18 03/18/18 03/18/18 16:58 13:10 13:10 WBC RBC Hgb Hct MCV MCH MCHC RDW Plt Count MPV Neut % (Auto) Lymph % (Auto) Otero % (Auto) Eos % (Auto) Baso % (Auto) Neut # (Auto) Lymph # (Auto) Otero # (Auto) Eos # (Auto) Baso # (Auto) CBC Comment Total Counted Neutrophils % (Manual) Band Neutrophils % Lymphocytes % Eosinophils % Neutrophils # (Manual) Differential Comment Platelet Estimate Plt Morphology Comment RBC Morph Comment Hematology Comments PT INR APTT Puncture Site RT RADIAL Patient Temperature 98.6 HCO3 21 L Base Excess -2.6 L O2 Saturation 93 ABG pH 7.47 H ABG pCO2 29 L ABG pO2 66 ABG O2 Content 13.7 ABG Carboxyhemoglobin 1.0 ABG Methemoglobin 1.3 Hemoglobin 10.5 L O2 Delivery Device Liter Flow Vent Setting Inspired O2 Sodium Potassium Chloride Carbon Dioxide Anion Gap BUN Creatinine Estimated GFR Random Glucose Lactic Acid 2.4 H Calcium Magnesium Total Bilirubin AST ALT Alkaline Phosphatase Total Creatine Kinase Troponin I B-Natriuretic Peptide Total Protein Albumin Lipase Free T4 TSH 3rd Generation Urine Color Urine Turbidity Urine pH Ur Specific [place] Urine Protein Urine Glucose (UA) Urine Ketones Urine Occult Blood Urine Nitrite Urine Bilirubin Urine Urobilinogen Ur Leukocyte Esterase Urine WBC Ur Squamous Epith Cells Micro UA Comment Nasal Screen MRSA (PCR) Hepatitis A IgM Ab NONREACTIVE Hep Bs Antigen NONREACTIVE Hep B Core IgM Ab NONREACTIVE Hep C IgG Ab NONREACTIVE 03/18/18 03/18/18 03/18/18 09:53 04:43 03:48 WBC RBC Hgb Hct MCV MCH MCHC RDW Plt Count MPV Neut % (Auto) Lymph % (Auto) Otero % (Auto) Eos % (Auto) Baso % (Auto) Neut # (Auto) Lymph # (Auto) Otero # (Auto) Eos # (Auto) Baso # (Auto) CBC Comment Total Counted Neutrophils % (Manual) Band Neutrophils % Lymphocytes % Eosinophils % Neutrophils # (Manual) Differential Comment Platelet Estimate Plt Morphology Comment RBC Morph Comment Hematology Comments PT INR APTT Puncture Site RT RADIAL Patient Temperature 98.6 HCO3 21 L Base Excess -3.1 L O2 Saturation 97 ABG pH 7.41 ABG pCO2 33 L ABG pO2 114 ABG O2 Content 16.0 ABG Carboxyhemoglobin 0.8 ABG Methemoglobin 1.2 Hemoglobin 11.7 L O2 Delivery Device BiPAP Liter Flow Vent Setting 10 IPAP/5 EPAP Inspired O2 30 Sodium Potassium Chloride Carbon Dioxide Anion Gap BUN Creatinine Estimated GFR Random Glucose Lactic Acid 4.9 H* 2.6 H Calcium Magnesium Total Bilirubin AST ALT Alkaline Phosphatase Total Creatine Kinase Troponin I B-Natriuretic Peptide Total Protein Albumin Lipase Free T4 TSH 3rd Generation Urine Color Urine Turbidity Urine pH Ur Specific [place] Urine Protein Urine Glucose (UA) Urine Ketones Urine Occult Blood Urine Nitrite Urine Bilirubin Urine Urobilinogen Ur Leukocyte Esterase Urine WBC Ur Squamous Epith Cells Micro UA Comment Nasal Screen MRSA (PCR) Hepatitis A IgM Ab Hep Bs Antigen Hep B Core IgM Ab Hep C IgG Ab 03/18/18 03/18/18 03/17/18 03:48 03:48 22:00 WBC 21.7 H RBC 3.71 L Hgb 11.8 D Hct 34.6 L MCV 93.2 MCH 31.8 MCHC 34.2 RDW 12.8 Plt Count 357 MPV 7.4 Neut % (Auto) Lymph % (Auto) Otero % (Auto) Eos % (Auto) Baso % (Auto) Neut # (Auto) Lymph # (Auto) Otero # (Auto) Eos # (Auto) Baso # (Auto) CBC Comment AUTO DIFF Total Counted 100 Neutrophils % (Manual) 75 H Band Neutrophils % 23 H Lymphocytes % 1 L Eosinophils % 1 Neutrophils # (Manual) 21.3 H Differential Comment FINAL DIFF MANUAL Platelet Estimate NORMAL Plt Morphology Comment NORMAL RBC Morph Comment NORMAL Hematology Comments PT INR APTT Puncture Site Patient Temperature HCO3 Base Excess O2 Saturation ABG pH ABG pCO2 ABG pO2 ABG O2 Content ABG Carboxyhemoglobin ABG Methemoglobin Hemoglobin O2 Delivery Device Liter Flow Vent Setting Inspired O2 Sodium 137 Potassium 4.4 D Chloride 107 D Carbon Dioxide 21.8 Anion Gap 8 BUN 13 Creatinine 0.92 Estimated GFR 60 L Random Glucose 141 H Lactic Acid Calcium 8.4 L D Magnesium Total Bilirubin 0.5 AST 51 H ALT 60 H Alkaline Phosphatase 95 Total Creatine Kinase Troponin I B-Natriuretic Peptide Total Protein 6.3 L D Albumin 2.5 L D Lipase Free T4 TSH 3rd Generation Urine Color Urine Turbidity Urine pH Ur Specific [place] Urine Protein Urine Glucose (UA) Urine Ketones Urine Occult Blood Urine Nitrite Urine Bilirubin Urine Urobilinogen Ur Leukocyte Esterase Urine WBC Ur Squamous Epith Cells Micro UA Comment Nasal Screen MRSA (PCR) MRSA NOT DETECTED Hepatitis A IgM Ab Hep Bs Antigen Hep B Core IgM Ab Hep C IgG Ab 03/17/18 03/17/18 03/17/18 20:14 19:56 19:45 WBC RBC Hgb Hct MCV MCH MCHC RDW Plt Count MPV Neut % (Auto) Lymph % (Auto) Otero % (Auto) Eos % (Auto) Baso % (Auto) Neut # (Auto) Lymph # (Auto) Otero # (Auto) Eos # (Auto) Baso # (Auto) CBC Comment Total Counted Neutrophils % (Manual) Band Neutrophils % Lymphocytes % Eosinophils % Neutrophils # (Manual) Differential Comment Platelet Estimate Plt Morphology Comment RBC Morph Comment Hematology Comments PT INR APTT Puncture Site LT RADIAL Patient Temperature 98.6 HCO3 22 Base Excess -4.4 L O2 Saturation 95 ABG pH 7.22 L* ABG pCO2 55 H* ABG pO2 97 ABG O2 Content 16.9 ABG Carboxyhemoglobin 0.7 ABG Methemoglobin 0.6 Hemoglobin 12.6 O2 Delivery Device NASAL CANNULA Liter Flow 4.5 Vent Setting Inspired O2 Sodium Potassium Chloride Carbon Dioxide Anion Gap BUN Creatinine Estimated GFR Random Glucose Lactic Acid 2.5 H Calcium Magnesium Total Bilirubin AST ALT Alkaline Phosphatase Total Creatine Kinase Troponin I B-Natriuretic Peptide Total Protein Albumin Lipase Free T4 TSH 3rd Generation Urine Color YELLOW Urine Turbidity HAZY H Urine pH 6.0 Ur Specific [place] 1.033 Urine Protein NEG Urine Glucose (UA) 50 Urine Ketones NEG Urine Occult Blood NEG Urine Nitrite NEG Urine Bilirubin NEG Urine Urobilinogen LESS THAN 2 Ur Leukocyte Esterase NEG Urine WBC 2 Ur Squamous Epith Cells 9 Micro UA Comment CULT NOT INDICATED Nasal Screen MRSA (PCR) Hepatitis A IgM Ab Hep Bs Antigen Hep B Core IgM Ab Hep C IgG Ab 03/17/18 03/17/18 03/17/18 17:20 17:20 17:20 WBC 23.3 H RBC 4.35 Hgb 13.8 Hct 40.6 MCV 93.3 MCH 31.6 MCHC 33.9 RDW 12.6 Plt Count 403 MPV 7.5 Neut % (Auto) 98.0 H Lymph % (Auto) 0.5 L Otero % (Auto) 1.0 Eos % (Auto) 0.3 Baso % (Auto) 0.2 Neut # (Auto) 22.9 H Lymph # (Auto) 0.1 L Otero # (Auto) 0.2 Eos # (Auto) 0.1 Baso # (Auto) 0.0 CBC Comment DIFF FINAL Total Counted Neutrophils % (Manual) Band Neutrophils % Lymphocytes % Eosinophils % Neutrophils # (Manual) Differential Comment Platelet Estimate Plt Morphology Comment RBC Morph Comment Hematology Comments PT INR APTT Puncture Site Patient Temperature HCO3 Base Excess O2 Saturation ABG pH ABG pCO2 ABG pO2 ABG O2 Content ABG Carboxyhemoglobin ABG Methemoglobin Hemoglobin O2 Delivery Device Liter Flow Vent Setting Inspired O2 Sodium Potassium Chloride Carbon Dioxide Anion Gap BUN Creatinine Estimated GFR Random Glucose Lactic Acid 2.5 H Calcium Magnesium Total Bilirubin AST ALT Alkaline Phosphatase Total Creatine Kinase Troponin I B-Natriuretic Peptide Total Protein Albumin Lipase Free T4 Cancelled TSH 3rd Generation Urine Color Urine Turbidity Urine pH Ur Specific [place] Urine Protein Urine Glucose (UA) Urine Ketones Urine Occult Blood Urine Nitrite Urine Bilirubin Urine Urobilinogen Ur Leukocyte Esterase Urine WBC Ur Squamous Epith Cells Micro UA Comment Nasal Screen MRSA (PCR) Hepatitis A IgM Ab Hep Bs Antigen Hep B Core IgM Ab Hep C IgG Ab 03/17/18 03/17/18 03/17/18 17:20 17:20 17:20 WBC RBC Hgb Hct MCV MCH MCHC RDW Plt Count MPV Neut % (Auto) Lymph % (Auto) Otero % (Auto) Eos % (Auto) Baso % (Auto) Neut # (Auto) Lymph # (Auto) Otero # (Auto) Eos # (Auto) Baso # (Auto) CBC Comment Total Counted Neutrophils % (Manual) Band Neutrophils % Lymphocytes % Eosinophils % Neutrophils # (Manual) Differential Comment Platelet Estimate Plt Morphology Comment RBC Morph Comment Hematology Comments PT 10.5 INR 1.0 APTT 25.1 Puncture Site Patient Temperature HCO3 Base Excess O2 Saturation ABG pH ABG pCO2 ABG pO2 ABG O2 Content ABG Carboxyhemoglobin ABG Methemoglobin Hemoglobin O2 Delivery Device Liter Flow Vent Setting Inspired O2 Sodium 132 L Potassium 3.2 L Chloride 97 L Carbon Dioxide 27.0 Anion Gap 8 BUN 15 Creatinine 0.87 Estimated GFR 63 L Random Glucose 116 H Lactic Acid Calcium 9.6 Magnesium 1.8 Total Bilirubin 0.7 AST 52 H ALT 60 H Alkaline Phosphatase 122 H Total Creatine Kinase 59 Troponin I LESS THAN 0.02 L B-Natriuretic Peptide 123 H Total Protein 8.3 H Albumin 3.6 Lipase 64 L Free T4 1.15 TSH 3rd Generation 0.240 L Urine Color Urine Turbidity Urine pH Ur Specific [place] Urine Protein Urine Glucose (UA) Urine Ketones Urine Occult Blood Urine Nitrite Urine Bilirubin Urine Urobilinogen Ur Leukocyte Esterase Urine WBC Ur Squamous Epith Cells Micro UA Comment Nasal Screen MRSA (PCR) Hepatitis A IgM Ab Hep Bs Antigen Hep B Core IgM Ab Hep C IgG Ab Discharge Plan - Discharge Disposition Patient Disposition: 01 Discharge Home - Discharge Condition Condition: Fair - Discharge Order Discharge Orders: Discharge Order (Routine); Ordered 03/21/18 Ordered By: Carmelo Boogie - Physicians Team Primary Care Provider: Porsche Hernandez Attending Provider: Carmelo Boogie - Rxs /Orders / Referrals /Forms Prescriptions: New acidophilus-sporogenes [Acidophilus Ex Str (L. sporog)] 35 million- 25 million cell Tablet 1 tab PO BID RF: 0 levofloxacin 750 mg Tablet 750 mg PO DAILY Qty: 10 RF: 0 Continue biotin 10,000 mg PO DAILY Calcium 600 1 tab PO BID Claritin 10 mg PO DAILY losartan 50 mg PO DAILY lutein 20 mg PO DAILY milk thistle 175 mg PO DAILY Multiple Vitamins 1 tab PO DAILY Probiotic 1 tab PO BID Referrals: Porsche Hernandez MD [Primary Care Provider] - See Instructions
[2018-03-21] MEDS ORDERED: Vancomycin Inj 1,150 MG in Sodium Chlor 0.9% Inj 250 ML IV.SIG SCH (18:00)
== END 2018-03-21 13:31 | disposition home or self-care (01) ==
LOC: N07 → UNDODISIN → HIMC 19:42 → N07 03-20 15:17
PROVIDERS: ADMIT Hospitalist; ATTEND Hospitalist